=== PATIENT | female | born 1965 | race Caucasian/White ===

== ENCOUNTER → 2018-12-31 | Outpatient (CLI) | payer MEDICAID ==
[~2018-12-31] MED LIST: ASPIRIN 81M81 MG/TA2 PO; CATAPRES 0.1MG0.1 MG PO; CEPHALEXIN500 M1 PO; NORCO 325 MG-51 TAB PO; NORCO 325 MG-7.1 TAB PO; NORVASC 10MG10 MG PO; PRINIVIL20 MG PO; TYLENOL 325MG325 MG PO; ZANTAC 150MG T150 MG PO
== END ==
LOC: COL.VAS 12:46
DX: T82.868A Thrombosis due to vascular prosthetic devices, implants and grafts, initial encounter (principal)

== ENCOUNTER → 2019-01-06 | Outpatient (CLI) | payer MEDICAID | LOC: COL.VAS 09:13 | DX: N18.4 Chronic kidney disease, stage 4 (severe) (principal) | CPT/HCPCS: G0365 ==

== ENCOUNTER 2019-06-02 07:10 | Outpatient (CLI) | payer MEDICAID ==
[~2019-06-02] VITALS: Ht 160 cm; Wt 78.2 kg
[~2019-06-02 07:10] MED LIST changes: -CHANTIX 0.5MG0.5 MG PO; -ELIQUIS 5MG PO; -LASIX 40MG TABL40 MG PO; -PLAVIX 75MG TAB75 MG PO; -PRILOSEC 20MG20 MG PO
[2019-06-02] MEDS ORDERED: PRILOSEC 20MG20 MG PO (08:01)
[2019-06-02] MEDS ORDERED: CHANTIX 0.5MG0.5 MG PO (08:05)
[2019-06-02] MEDS ORDERED: LASIX 40MG TABL40 MG PO (08:06)
--- NOTE | 2019-06-02 08:15 | NUR ---
Dr Angulo in to see pt.per Dr angulo procedure cancelled.research laboratory specialist aware.
[2019-06-02 08:20] VITALS: BP 141/95; PULSE 53
--- NOTE | 2019-06-02 08:37 | NUR ---
Pt discharge via ambulatory by this nurse.
== END 2019-06-02 08:37 | disposition home or self-care (01) ==
LOC: COL.CAR 07:10
DX: T82.898A Other specified complication of vascular prosthetic devices, implants and grafts, initial encounter (principal); Z53.8 Procedure and treatment not carried out for other reasons

== ENCOUNTER → 2019-06-02 | Outpatient (CLI) | payer MEDICAID ==
[~2019-06-02] MED LIST changes: +CHANTIX 0.5MG0.5 MG PO; +ELIQUIS 5MG PO; +LASIX 40MG TABL40 MG PO; +PLAVIX 75MG TAB75 MG PO; +PRILOSEC 20MG20 MG PO
[2019-06-02 19:20] LABS: BASO # 0.1 (0.0-0.2); BASO % 0.7 % (0.0-2.0); EOS # 0.3 (0.0-0.7); EOS % 4.3 % (0-4.0); GRAN # 3.5 (1.4-6.5); GRAN % 51.8 % (42.2-75.2); HEMATOCRIT 38.3 % (37.0-47.0); LYMPH # 2.4 (1.2-3.4); LYMPH % 35.6 % (20.0-51.0); MEAN CELL VOLUME 95 fl (80.0-100.0); MEAN CORPUSCULAR HEMOGLOBIN 30 pg (27.0-31.0); MEAN CORPUSCULAR HGB CONC 31 g/dl (33.0-37.0); MEAN PLATELET VOLUME 10.4 fl (7.4-10.4); MONO # 0.5 (0.1-0.6); MONO % 7.5 % (1.7-9.3); PLATELET COUNT 252 K/mm3 (130-400); RED BLOOD COUNT 4.05 M/mm3 (4.10-5.30); REDCELL DISTRIBUTION WIDTH-CV 13.4 % (11.5-14.5)
[2019-06-02 19:46] LABS: INR 0.8 (0.8-3.0); PROTHROMBIN TIME 9.5 SECONDS (9.7-12.8)
[2019-06-02 19:48] LABS: PARTIAL THROMBOPLASTIN TIME 23.8 SECONDS (26.0-37.0)
[2019-06-03 23:55] LABS: FACTOR V LEIDEN MUTATION B Negative (Negative)
[2019-06-06 12:36] LABS: LUPUS ANTICOAGULANT PT 12.9 Seconds (())
[2019-06-07 08:40] LABS: ANTI-THROMBIN III 137 % (72-128)
[2019-06-07 08:44] LABS: PROTEIN C ACTIVITY 122 % (70-150)
== END ==
LOC: COL.LAB 17:27
PROVIDERS: Internal Medicine Nephrology
DX: D68.59 Other primary thrombophilia (principal); I74.2 Embolism and thrombosis of arteries of the upper extremities